=== PATIENT | female | born 1955 | race Caucasian/White ===

== ENCOUNTER 2021-07-11 22:52 | Emergency (ER) | payer MEDICAID ==
[~2021-07-11] VITALS: Ht 157.5 cm; Wt 86.2 kg
[2021-07-12] MEDS ORDERED: OXYCODONE/APAP 5-325 MG TABLET ONE (01:14)
[2021-07-12] MEDS ORDERED: OXYCODONE/APAP 5-325 MG TABLET PO ONE (01:15)
--- NOTE | 2021-07-12 01:32 | NUR ---
PATIENT OUT OF UNIT FOR X RAY VIA WHEELCHAIR.
--- NOTE | 2021-07-12 01:44 | NUR ---
PATIENT BACK FROM X RAY
[2021-07-12] MEDS ORDERED: OXYC-128 PO (02:05)
--- NOTE | 2021-07-12 02:21 | NUR ---
Patient discharged to home in stable condition with owen patient back home.. Written and verbal after care instructions given. Patient verbalizes understanding of instructions. Stressed follow up or return to ER for worsening s/s.
[2021-07-12 02:22] VITALS: BP 158/95
== END 2021-07-12 02:23 | disposition home or self-care (01) ==
LOC: ER 22:59
DX: S22.32XA Fracture of one rib, left side, initial encounter for closed fracture (principal); V49.50XA Passenger injured in collision with unspecified motor vehicles in traffic accident, initial encounter; W22.12XA Striking against or struck by front passenger side automobile airbag, initial encounter; Y92.410 Unspecified street and highway as the place of occurrence of the external cause; E89.0 Postprocedural hypothyroidism; Z85.850 Personal history of malignant neoplasm of thyroid; E78.5 Hyperlipidemia, unspecified; F41.9 Anxiety disorder, unspecified; Z87.09 Personal history of other diseases of the respiratory system
CPT/HCPCS: 71101; A4663